=== PATIENT | male | born 1960 | race Caucasian/White ===

== ENCOUNTER 2017-10-07 10:27 | Emergency (ER) | payer MEDICARE, OTHER ==
[2017-10-07 10:44] VITALS: BP 153/97
--- NOTE | 2017-10-07 11:46 | UC ---
Lower Extremity/Ankle HPI - HPI Summary HPI Summary: c/o of burning and numbness on lateral side of left lower thigh for the past 2 days. Denies trauma or exertion beyond usual. Has history of severe OA of left hip, awaiting hip replacement. Has history of THR of right hip. No changes on medicatons which he takes daily - History of Current Complaint Chief Complaint: UCLowerExtremity Stated Complaint: LEFT HIP AND LEG COMPLAINT Time Seen by Provider: 10/07/17 11:33 Hx Obtained From: Patient Onset/Duration: Sudden Onset, Lasting Days Severity Initially: Moderate Severity Currently: Moderate Pain Intensity: 6 Pain Scale Used: 0-10 Numeric Aggravating Factor(s): Ambulation Alleviating Factor(s): Rest Able to Bear Weight: Yes - Risk Factors Gout Risk Factors: Age Over 40, Obesity DVT Risk Factors: Negative Septic Arthritis Risk Factor: Negative - Allergies/Home Medications Allergies/Adverse Reactions: Allergies Allergy/AdvReac Type Severity Reaction Status Date / Time No Known Allergies Allergy Verified 10/07/17 10:45 Home Medications: Home Medications Atorvastatin* [Lipitor 40 MG*] 40 mg PO DAILY 10/07/17 [History Confirmed ] Lisinopril 20 mg PO DAILY 10/07/17 [History Confirmed 10/07/17] Morphine Sulfate [Morphabond ER] 30 mg PO DAILY 10/07/17 [History Confirmed 07/20] Oxaprozin 600 mg PO DAILY 10/07/17 [History Confirmed 10/07/17] buPROPion TAB* [Wellbutrin TAB*] 150 mg PO DAILY 10/07/17 [History Confirmed 07/20] diazePAM [Diazepam] 5 mg PO DAILY 10/07/17 [History Confirmed 10/07/17] oxyCODONE/Acetamin 5/325 MG* [Percocet 5/325 TAB*] 1 tab PO Q4HR 10/07/17 [ History Confirmed 10/07/17] PMH/Surg Hx/FS Hx/Imm Hx Endocrine History: Dyslipidemia Cardiovascular History: Hypertension Psychological History: Anxiety - Surgical History Surgical History: Yes Surgery Procedure, Year, and Place: right hip replacement 01/14. collar bone. appendix. left middle finger tendon repair - Social History Alcohol Use: Occasionally Substance Use Type: Marijuana Smoking Status (MU): Never Smoked Tobacco - Immunization History Most Recent Influenza Vaccination: 12/11/2012 Most Recent Tetanus Shot: not sure maybe 5 yrs Review of Systems Constitutional: Negative Musculoskeletal: Arthralgia, Myalgia All Other Systems Reviewed And Are Negative: Yes Physical Exam Triage Information Reviewed: Yes Appearance: Well-Appearing, No Pain Distress, Obese Vital Signs: Initial Vital Signs Temp 98.7 F 10/07/17 10:41 Pulse 73 10/07/17 10:41 Resp 16 10/07/17 10:41 BP 153/97 10/07/17 10:41 Pulse Ox 100 10/07/17 10:41 Vital Signs Reviewed: Yes Eyes: Positive: Conjunctiva Clear ENT: Positive: Hearing grossly normal, Pharynx normal Neck: Positive: Supple Respiratory: Positive: Chest non-tender Cardiovascular: Positive: Pulses Normal, Brisk Capillary Refill Abdomen Description: Positive: Nontender, No Organomegaly, Soft Male Genital Exam: Positive: Normal Genitalia, No Hernia Musculoskeletal: Positive: Strength Intact, ROM Intact, No Edema, Other: - sensation decreased on lateral aspect of mid distal left thigh Neurological: Positive: Muscle Tone Normal Lower Extremity Course/Dx - Course Course Of Treatment: discussed with patient findings, possible superficial nerve impingement on superficial femoral nerve. Start gabapentin as prescribed , f/u with PCP for referral neurology/EMG evaluation - Differential Dx/Diagnosis Provider Diagnoses: meralgia paresthetica. HTN Discharge - Sign-Out/Discharge Documenting (check all that apply): Patient Departure - Discharge Plan Condition: Good Disposition: HOME Patient Education Materials: Meralgia Paresthetica (ED), Gabapentin (By mouth) Referrals: Josias Painter MD [Primary Care Provider] - Johnny Parson MD [Medical Doctor] - - Billing Disposition and Condition Condition: GOOD Disposition: Home
== END 2017-10-07 12:08 | disposition home or self-care (01) ==
LOC: UCEAST 10:27
DX: G57.12 Meralgia paresthetica, left lower limb (principal); I10 Essential (primary) hypertension; M16.12 Unilateral primary osteoarthritis, left hip; E78.5 Hyperlipidemia, unspecified; F41.9 Anxiety disorder, unspecified; Z96.641 Presence of right artificial hip joint
CPT/HCPCS: 99212; G0463

== ENCOUNTER 2019-08-11 07:36 | Inpatient (IN) ==
[2019-08-11 08:18] LABS: ABS Eosinophils 0.2 10^3/ul (0-0.6); ABS Lymphocytes 1.9 10^3/ul (1.0-4.8); ABS Monocytes 1.2 10^3/ul (0-0.8); Eosinophil % 2.4 %; Hematocrit 38 % (42-52); Hemoglobin 13.3 g/dL (14.0-18.0); Lymphocyte % 20.9 %; Mean Corpuscular HGB Conc 35 g/dL (31-36); Mean Corpuscular Hemoglobin 31 pg (27-31); Mean Corpuscular Volume 89 fL (80-94); Mean Platelet Volume 9.2 fL (7.4-10.4); Nucleated Red Blood Cells % 0.1; Platelet Count 188 10^3/uL (150-450); Red Blood Count 4.26 10^6 /uL (4.18-5.48); Red Cell Distribution Width 14 % (10-15); White Blood Count 9.1 10^3/uL (3.5-10.8)
[2019-08-11 08:25] LABS: INR 0.94 (0.82-1.09)
[2019-08-11 08:30] LABS: Troponin I 0.01 ng/mL (<0.03)
[2019-08-11 08:32] LABS: ALT 22 U/L (7-52); AST 23 U/L (13-39); Albumin/Globulin Ratio 1.4 (1-3); Alkaline Phosphatase 53 U/L (34-104); Anion Gap 10 mmol/L (2-11); BUN/Creatinine Ratio 39.8 (8-20); Blood Urea Nitrogen 104 mg/dL (6-24); CO2 Carbon Dioxide 20 mmol/L (22-32); Calcium 9.1 mg/dL (8.6-10.3); Chloride 107 mmol/L (101-111); Cholesterol 159 mg/dL; EGFR African American 30.6 (>60); EGFR Non-African American 25.3 (>60); Globulin 2.8 g/dL (2-4); Glucose 133 mg/dL (70-100); LDL Cholesterol 81 mg/dL; Potassium 4.8 mmol/L (3.5-5.0); Sodium 137 mmol/L (135-145); Total Protein 6.8 g/dL (6.4-8.9); Triglycerides 237 mg/dL
[2019-08-11] MEDS ORDERED: NS 0.9% 1000 ml BAG 1,000 ML IV ONE ×2 (08:51→10:38)
[2019-08-11 08:52] LABS: Creatine Kinase 3091 U/L (10-223)
[2019-08-11 08:54] LABS: Acetaminophen < 15 mcg/mL; Alcohol, S < 10 mg/dL (<10); Salicylate < 2.50 mg/dL (<30)
[2019-08-11 09:06] LABS: TSH (Thyroid Stimulating Horm) 1.05 mcIU/mL (0.34-5.60)
[2019-08-11] MEDS ORDERED: Lidocaine 1% VIAL 10 MG/ML VIAL ONE (10:11)
[2019-08-11 10:48] LABS: Body Fluid Source Cerebral Spinal
[2019-08-11 11:00] LABS: CSF Glucose 84 mg/dL (40-70)
[2019-08-11] MEDS ORDERED: Thiamine 100 MG/ML 2 ml VIAL 100 MG, Folic Acid 1 MG, Multiple Vitamin IV ADULT 10 ML i... IV ONE (11:01)
[2019-08-11 11:41] LABS: Body Fluid Mono 68 %
[2019-08-11 11:45] LABS: Urine Appearance Clear; Urine Bilirubin Negative (Negative); Urine Blood 1+ (Negative); Urine Color Straw; Urine Glucose Negative (Negative); Urine Ketones Negative (Negative); Urine Nitrite Negative (Negative); Urine Protein Negative (Negative); Urine Specific Gravity 1.013 (1.010-1.030); Urine Urobilinogen Negative (Negative)
[2019-08-11 11:46] LABS: Urine Bacteria Absent (Absent); Urine Red Blood Cell Trace(0-2/hpf) (Absent); Urine White Blood Cell Absent (Absent)
[2019-08-11 12:19] LABS: Urine Benzodiazepine Screen Presumptive Positive (None Detect); Urine Opiates Screen Presumptive Positive (None Detect)
[2019-08-11] MEDS: Ondansetron 4 mg VIAL 2 MG/ML 2 ml VIAL IV PRN ×2 (14:34→20:25)
[2019-08-11] MEDS ORDERED: PPD test dose* 5 TU/0.1 ML TEST (*USE PPD ORDER SET*) INTRADERM SCH (17:00)
[2019-08-11] MEDS: NS 0.9% IVPB SCH (18:06)
[2019-08-11] MEDS: ACYCLOVIR IVPB SCH (18:06)
[2019-08-11 18:26] LABS: BUN/Creatinine Ratio 46.4 (8-20); Calcium 8.5 mg/dL (8.6-10.3); EGFR African American 56.7 (>60); EGFR Non-African American 46.8 (>60); Potassium 4.9 mmol/L (3.5-5.0)
[2019-08-11] MEDS: Morphine ER 15 mg (*) ** extended release PO SCH (20:25)
[2019-08-11] MEDS ORDERED: Morphine ER 30 mg TAB (*) ** extended release PO SCH (21:00)
[2019-08-11] MEDS ORDERED: Thiamine 100 MG/ML 2 ml VIAL 500 MG in NS 0.9% 250 ml 250 ML IV ONE (22:00)
[2019-08-11] MEDS: NS 0.9% 1000 ml BAG 1,000 ML IV SCH (22:09)
[2019-08-12] MEDS: NS 0.9% IVPB SCH ×2 (05:46→17:30)
[2019-08-12] MEDS: ACYCLOVIR IVPB SCH ×2 (05:46→17:30)
[2019-08-12 06:32] LABS: ABS Eosinophils 0.1 10^3/ul (0-0.6); ABS Lymphocytes 1.9 10^3/ul (1.0-4.8); Eosinophil % 1.8 %; Hematocrit 35 % (42-52); Lymphocyte % 24.6 %; Mean Corpuscular HGB Conc 35 g/dL (31-36); Mean Corpuscular Hemoglobin 31 pg (27-31); Mean Corpuscular Volume 89 fL (80-94); Platelet Count 180 10^3/uL (150-450); Red Blood Count 3.89 10^6 /uL (4.18-5.48); Red Cell Distribution Width 14 % (10-15); White Blood Count 7.6 10^3/uL (3.5-10.8)
[2019-08-12 06:51] LABS: BUN/Creatinine Ratio 34.6 (8-20); Blood Urea Nitrogen 46 mg/dL (6-24); CO2 Carbon Dioxide 23 mmol/L (22-32); Calcium 8.4 mg/dL (8.6-10.3); Creatine Kinase 1261 U/L (10-223); EGFR African American 66.6 (>60); Glucose 115 mg/dL (70-100); Potassium 4.5 mmol/L (3.5-5.0); Sodium 144 mmol/L (135-145)
[2019-08-12 07:04] LABS: Anion Gap 8 mmol/L (2-11); Chloride 113 mmol/L (101-111)
[2019-08-12] MEDS: Morphine ER 15 mg (*) ** extended release PO SCH ×2 (09:00→20:58)
[2019-08-12] MEDS: Multivitamins/Minerals TAB PO SCH (09:00)
[2019-08-12] MEDS ORDERED: LORazepam 2 mg VIAL 1 ml IV PUSH SCH (11:00)
[2019-08-12] MEDS: NS 0.9% 1000 ml BAG 1,000 ML IV SCH (13:35)
[2019-08-12] MEDS ORDERED: Lorazepam PYXIS KEY ONE (14:26)
[2019-08-12] MEDS ORDERED: Nicotine GUM 4MG FRUIT FLAVOR PO PRN (14:34)
[2019-08-12 16:49] LABS: % Iron Saturation 34 % (15-55); Iron 99 ug/dL (50-212); Total Iron Binding Capacity 294 mcg/dL (250-450); Transferrin 210 mg/dL (203-362)
[2019-08-12 16:51] LABS: Folate 14.22 ng/mL (>3.99)
[2019-08-12] MEDS: Nicotine PATCH 21 MG/24 HR PATCH TRANSDERM SCH (17:31)
[2019-08-12 20:47] LABS: HSV 1 PCR, CSF Negative (Negative); HSV 2 PCR, CSF Negative (Negative)
[2019-08-13] MEDS ORDERED: PPD Reading 48-72 HRS NOTE SCH (06:00)
[2019-08-13 06:14] LABS: ABS Eosinophils 0.3 10^3/ul (0-0.6); ABS Lymphocytes 2.8 10^3/ul (1.0-4.8); ABS Monocytes 0.8 10^3/ul (0-0.8); Hematocrit 36 % (42-52); Hemoglobin 12.1 g/dL (14.0-18.0); Mean Corpuscular HGB Conc 34 g/dL (31-36); Mean Corpuscular Hemoglobin 31 pg (27-31); Mean Corpuscular Volume 90 fL (80-94); Mean Platelet Volume 8.8 fL (7.4-10.4); Nucleated Red Blood Cells % 0.1; Platelet Count 198 10^3/uL (150-450); Red Blood Count 3.95 10^6 /uL (4.18-5.48); Red Cell Distribution Width 14 % (10-15); White Blood Count 8.4 10^3/uL (3.5-10.8)
[2019-08-13 06:33] LABS: BUN/Creatinine Ratio 21.3 (8-20); Calcium 8.9 mg/dL (8.6-10.3); EGFR African American 73.6 (>60); EGFR Non-African American 60.8 (>60); Potassium 4.5 mmol/L (3.5-5.0)
[2019-08-13] MEDS: ACYCLOVIR IVPB SCH (06:46)
[2019-08-13] MEDS: NS 0.9% IVPB SCH (06:46)
[2019-08-13] MEDS: Nicotine PATCH 21 MG/24 HR PATCH TRANSDERM SCH (07:47)
[2019-08-13] MEDS: Morphine ER 15 mg (*) ** extended release PO SCH (07:49)
[2019-08-13] MEDS: Multivitamins/Minerals TAB PO SCH (07:49)
[2019-08-13 13:37] LABS: B. garinii/B. afzellii PCR Negative (Negative); Lyme Disease Source CSF
[2019-08-13] MEDS: NS 0.9% 1000 ml BAG 1,000 ML IV SCH (13:38)
[2019-08-13 15:46] VITALS: BP 135/82
[2019-08-14 14:14] LABS: B. garinii/B. afzellii PCR Negative (Negative); Lyme Disease Source CSF
== END 2019-08-13 16:00 | disposition home or self-care (01) | DRG 92 ==
LOC: ED 07:36 → MEDTELE 11:24
PROVIDERS: ADMIT Hospitalist; ATTEND Internal Medicine

== ENCOUNTER 2023-04-12 12:22 | Inpatient (IN) ==
[2023-04-12] MEDS ORDERED: Magnesium Hydroxide LIQ 30 ML UDC PO PRN (16:48)
[2023-04-12] MEDS ORDERED: Senna TAB 8.6 mg TAB PO PRN (16:48)
[2023-04-12] MEDS: Enoxaparin 40 MG/0.4 ML SYR SUBCUT SCH (20:36)
[2023-04-13 06:41] LABS: ABS Basophils 0.1 10^3/uL (0.0-0.1); ABS Eosinophils 0.2 10^3/uL (0.0-0.5); ABS Lymphocytes 2.7 10^3/uL (1.0-4.8); ABS Monocytes 1.1 10^3/uL (0.0-1.1); ABS Neutrophils 6.9 10^3/uL (1.5-7.6); ABS Nucleated RBC 0.01 10^3/ul; Eosinophil % 1.8 %; Hematocrit 47.2 % (38-53); Hemoglobin 16.3 g/dL (13.2-16.3); Lymphocyte % 24.5 %; Mean Corpuscular Hemoglobin 29.5 pg (27-33); Mean Corpuscular Hgb Conc 34.6 g/dL (31-36); Mean Corpuscular Volume 85.5 fL (80-97); Mean Platelet Volume 8.5 fL (7.5-11.2); Nucleated Red Blood Cells % 0.1 %/100WBC (0.0-0.8); Platelet Count 245 10^3/uL (150-450); Red Blood Count 5.52 10^6/uL (4.06-5.63); Red Cell Distribution Width 13.5 % (12-17)
[2023-04-13 07:03] LABS: Albumin 4.7 g/dL (3.2-5.2); Albumin/Globulin Ratio 1.7 (1-3); Calcium 9.8 mg/dL (8.6-10.3); Creatinine, Serum 0.96 mg/dL (0.67-1.17); Globulin 2.8 g/dL (2-4); Potassium 4.1 mmol/L (3.5-5.0); Total Protein 7.5 g/dL (6.4-8.9); eGFR CKD-EPI 88.8 (>60)
[2023-04-13] MEDS: Aspirin EC 81 mg TAB.EC (enteric coated) PO SCH (11:31)
[2023-04-13] MEDS: Nicotine PATCH 14 MG/24 HR PATCH TRANSDERM SCH (11:32)
[2023-04-14 06:06] LABS: ABS Basophils 0.1 10^3/uL (0.0-0.1); ABS Eosinophils 0.2 10^3/uL (0.0-0.5); ABS Lymphocytes 2.6 10^3/uL (1.0-4.8); ABS Neutrophils 5.8 10^3/uL (1.5-7.6); ABS Nucleated RBC 0.02 10^3/ul; Eosinophil % 2.5 %; Hematocrit 44.2 % (38-53); Hemoglobin 15.2 g/dL (13.2-16.3); Lymphocyte % 26.9 %; Mean Corpuscular Hemoglobin 29.5 pg (27-33); Mean Corpuscular Hgb Conc 34.3 g/dL (31-36); Mean Platelet Volume 8.6 fL (7.5-11.2); Nucleated Red Blood Cells % 0.2 %/100WBC (0.0-0.8); Platelet Count 232 10^3/uL (150-450); Red Blood Count 5.13 10^6/uL (4.06-5.63); Red Cell Distribution Width 13.7 % (12-17); White Blood Count 9.8 10^3/uL (3.6-10.2)
[2023-04-14 09:14] LABS: High Sensitivity Troponin 1 Hr 9 pg/mL (<20)
[2023-04-17 04:09] VITALS: BP 155/81
== END 2023-04-17 12:00 | disposition home or self-care (01) | DRG 65 ==
LOC: PMRU 14:10
PROVIDERS: ADMIT Physical Medicine & Rehabilitation; ATTEND Physical Medicine & Rehabilitation